=== PATIENT | male | born 1985 | race Two or more races ===

== ENCOUNTER 2017-04-10 13:35 | Emergency (ER) | payer MEDICAID ==
[~2017-04-10] VITALS: Ht 167.6 cm; Wt 63.5 kg
[2017-04-10 13:45] VITALS: BP 125/81
[2017-04-10] MEDS ORDERED: Bacitracin Oint UD TOPIC ONE (13:45)
[2017-04-10] MEDS ORDERED: Lidocaine 1% 10mg/ml/Epi 0.005mg/ml 30ml vial INJ ONE (13:45)
[2017-04-10] MEDS ORDERED: Tetanus/Diptheria/Pertussis Vaccine 0.5ml Syr IM ONE (13:45)
--- NOTE | 2017-04-10 13:50 | Emergency Room Report ---
History of Present Illness General Chief Complaint: Laceration Source: Patient Present Illness HPI The patient is a 32-year-old male presenting for laceration of the left forearm. He states that this occurred just prior to arrival while transporting a piece of glass for recycling. He noticed pain and bleeding to the area. Described as an 8/10 sharp sensation. He denies any numbness or tingling. he is unsure of last tetanus shot. He denies any other injuries or symptoms Allergies: Coded Allergies: No Known Allergies (Unverified , 04/10/17) Patient History Past Medical History: see triage record Pertinent Family History: none Reviewed Nursing Documentation: PMH: Agreed, PSxH: Agreed Nursing Documentation-PMH Past Medical History: No Stated History Review of Systems All Other Systems: negative except mentioned in HPI Physical Exam Vital Signs Date Time Temp Pulse Resp B/P (MAP) Pulse Ox O2 Delivery O2 Flow Rate FiO2 04/10/17 13:40 97.9 70 16 155/79 98 Room Air Sp02 EP Interpretation: reviewed, normal General Appearance: no apparent distress, alert, GCS 15, non-toxic Head: normocephalic, atraumatic Eyes: bilateral eye normal inspection, bilateral eye PERRL ENT: hearing grossly normal, normal pharynx, no angioedema, normal voice Musculoskeletal: back normal, digits/nails normal, gait/station normal, normal range of motion Neurologic: alert, oriented x3, responsive, motor strength/tone normal, sensory intact, speech normal Psychiatric: judgement/insight normal, memory normal, mood/affect normal, no suicidal/homicidal ideation Skin: laceration - 3cm linear laceration to L ventral forearm Lymphatic: no adenopathy Procedures Laceration/Wound Repair Laceration/Wound Repair : Consent: Verbal Wound Location: upper extremity Wound's Depth, Shape: superficial, linear Wound Length (cm): 3 Wound Explored: clean Irrigated w/ Saline (ccs): 100 Betadine Prep?: Yes Anesthesia: 1% Lidocaine, Lidocaine w/ Epi Volume Anesthetic (ccs): 3 Wound Debrided: minimal Wound Repaired With: sutures Suture Size/Type: 4:0, nylon Number of Sutures: 4 Layer Closure?: No Sterile Dressing Applied?: Yes Splint Applied?: No Sling Applied?: No Patient Tolerated: Well Complications: None Medical Decision Making PA Attestation Dr. Faye is my supervising physician. Patient management was discussed with my supervising physician Diagnostic Impression: Primary Impression: Laceration ER Course The patient is a 32-year-old male presenting for laceration of the left forearm Ddx considered include but not limited to fracture, tendon/ligament injury, avulsion, nerve damage pe: There is a 3 cm linear laceration to the left ventral midforearm. Full active range of motion. No active bleeding The wound was irrigated with normal saline and cleaned with betadine. A 27g needle was used to administer 4mL of lidocaine w. epi for local anaesthesia. 4 sutures were placed with 4-0 Nylon. The wound was well approximated and the patient tolerated the procedure well. The wound was then cleaned and bacitracin was applied. The patient is given a tetanus shot he is given laceration instructions including suture care. ER precautions given Last Vital Signs Date Time Temp Pulse Resp B/P (MAP) Pulse Ox O2 Delivery O2 Flow Rate FiO2 04/10/17 13:40 97.9 70 16 155/79 98 Room Air Status: improved Disposition: HOME, SELF-CARE Condition: Improved Scripts Ibuprofen* (MOTRIN*) 600 Mg Tablet 600 MG ORAL Q8H Y for For Pain, #30 TAB 0 Refills Prov: SKYLA RODRIGUEZ 04/10/17 SKYLA RODRIGUEZ Apr 10, 2017 13:50
[2017-04-10] MEDS ORDERED: IBUPROFEN600 MG ORAL (14:39)
[2017-04-10 15:07] VITALS: BP 128/72
== END 2017-04-10 15:08 | disposition home or self-care (01) ==
LOC: EMR 14:09
DX: S51.812A Laceration without foreign body of left forearm, initial encounter (principal); W25.XXXA Contact with sharp glass, initial encounter; Y92.89 Other specified places as the place of occurrence of the external cause; Z23 Encounter for immunization
CPT/HCPCS: 12002; 90471; 90715; 99284; Z7502